=== PATIENT | male | born 1985 | race Two or more races ===

== ENCOUNTER 2021-04-14 16:08 | Emergency (ER) | payer OTHER, SELFPAY ==
[2021-04-14 16:40] VITALS: BP 109/67; PULSE 70; RESP 20; TEMP 37.3; O2SAT 97; BMI 37.3
--- NOTE | 2021-04-14 17:35 | ECG_ITS ---
APPROVED REPORT Exam: Resting ECG HR:79 bpm ECG Measurements Heart Rate 79 AXES WV 156 P 55 QRSd 92 QRS 30 QT 364 T 8 QTc 417 Conclusion Normal sinus rhythm Minimal voltage criteria for LVH, may be normal variant Isolated q in iii Abnormal ECG Electronically signed by : Oniel Lee, 04/15/2021 07:11:23
--- NOTE | 2021-04-14 17:35 | XR_ITS ---
PROCEDURE INFORMATION: Exam: XR Chest Exam date and time: 04/14/2021 5:35 PM Age: 35 years old Clinical indication: Chest pressure and left-sided; Patient HX: Left sided chest pain TECHNIQUE: Imaging protocol: XR of the chest. Views: 1 view. COMPARISON: CR CXR1 CHEST-PORTABLE 04/12/2016 12:32 PM FINDINGS: Lungs: Unremarkable. No consolidation. Pleural spaces: Unremarkable. No pleural effusion. No pneumothorax. Heart/Mediastinum: Unremarkable. No cardiomegaly. Bones/joints: Unremarkable. IMPRESSION: No new cardiopulmonary findings.
--- NOTE | 2021-04-14 17:36 | [facility].EDGENADL ---
ED Disposition Clinical Impression: Atypical chest pain, Encounter for medical screening examination Disposition: Home, Self-Care Condition on Discharge: Good Instructions: DI for Atypical Chest Pain, DI for Chest Pain Additional Instructions: You have been evaluated for chest pain. No signs of high blood pressure or diabetes. Please follow-up with a primary care doctor within 24 to 48 hours. Cardiology when available. Return to the emergency department for any new or worsening symptoms, chest pain, shortness of breath, syncope, other concerns. Referrals: Provider,MD Carmen [Primary Care Provider] - Benji Michael MD [Staff Physician] - Time of Disposition: 19:49 - Critical Care Critical Care Time: No Attestation: On 04/14/21, the high probability of a clinically significant, sudden or life threatening deterioration of the following system(s) required my full and direct attention, intervention and personal management. The time I documented below is in addition to time spent performing reported procedures but includes the following listed in this critical care notation. Medical Decision Making - Medical Records Medical records reviewed: Yes: I reviewed the patient's medical records. - Fran Inquiry Pt receiving controlled substance: No Vital Signs: 04/14/21 16:40 04/14/21 18:13 04/14/21 18:30 Temperature 99.1 F Temperature Source Oral Pulse Rate 76 72 Pulse Rate [Right Brachial] 70 Respiratory Rate 20 Blood Pressure 109/65 L 103/57 L Blood Pressure [Right Arm] 109/67 L Blood Pressure Mean 79 Blood Pressure Mean [Right Arm] 81 Blood Pressure Source [Right Arm] Automatic Cuff Blood Pressure Position [Right Arm] Sitting 02 Sat by Pulse Oximetry 97 98 98 Oxygen Delivery Method Room Air 04/14/21 19:00 04/14/21 20:18 Temperature 98.4 F Temperature Source Oral Pulse Rate 67 69 Pulse Rate [Right Brachial] Respiratory Rate 18 Blood Pressure 115/75 114/72 Blood Pressure [Right Arm] Blood Pressure Mean Blood Pressure Mean [Right Arm] Blood Pressure Source [Right Arm] Blood Pressure Position [Right Arm] 02 Sat by Pulse Oximetry 98 Oxygen Delivery Method - Lab Data Lab Results 04/14/21 15:59: Urine Color Yellow, Urine Appearance Clear, Urine pH 7.0, Ur Specific [place] 1.020, Urine Protein Negative, Urine Glucose (UA) Negative, Urine Ketones Negative, Urine Blood Negative, Urine Nitrate Negative, Urine Bilirubin Negative, Urine Urobilinogen 2.0, Ur Leukocyte Esterase Negative, Urine WBC Occasional, Amorphous Sediment 2+, Urine Bacteria 1+ 04/14/21 16:40: WBC 10.4, RBC 4.99, Hgb 13.9 L, Hct 40.5 L, MCV 81.2, MCH 27.9, MCHC 34.3, RDW 14.4, Plt Count 163, MPV 11.4 H, Neut % (Auto) 59.4, Lymph % (Auto) 32.7, [place] % (Auto) 5.6, Eos % (Auto) 1.9, Baso % (Auto) 0.5, Neut # (Auto) 6.2, Lymph # (Auto) 3.4, [place] # (Auto) 0.6, Eos # (Auto) 0.2, Baso # (Auto) 0.1 04/14/21 16:40: Sodium 139, Potassium 3.8, Chloride 106, Carbon Dioxide 29, Anion Gap 7.8, BUN 13, Creatinine 0.80, Estimated Creat Clear 197, Estimated GFR 110, Est GFR ( Amer) 133, Glucose 88, Calcium 9.0, Total Bilirubin 0.6, AST 26, ALT 31, Alkaline Phosphatase 84, Troponin I < 0.01, Total Protein 7.5, Albumin 4.3, Globulin 3.2, Albumin/Globulin Ratio 1.3 04/14/21 16:40: Hemoglobin A1c 5.3 04/14/21 19:13: Troponin I < 0.01 Result diagrams: 04/14/21 16:40 04/14/21 16:40 Orders (Tests/Meds): ED MEDICATIONS Discontinued Medications Generic Name Dose Route Start Last Admin Trade Name Freq PRN Reason Stop Dose Admin Aspirin 324 mg 04/14/21 17:36 04/14/21 17:46 Aspirin 81mg Chewable Tablet PO 04/14/21 17:37 Not Given ONCE ONE Aspirin 325 mg 04/14/21 17:45 04/14/21 17:47 Aspirin 325mg Tablet PO 04/14/21 17:46 325 mg ONCE ONE Administration ORDERS Category Date Time Status EKG Request [ECG Request by /Jyoti] Stat Y 04/14/21 17:35 Ordered - ECG Data T
[2021-04-14 17:54] LABS: Basophils # 0.1 K/mm3 (0-0.2); Basophils % 0.5 % (0.1-2.0); Eosinophils # 0.2 K/mm3 (0.0-0.4); Eosinophils % 1.9 % (0.1-12.0); Hematocrit 40.5 % (42.0-52.0); Hemoglobin 13.9 g/dL (14.1-18.0); Lymphocytes # 3.4 K/mm3 (0.7-4.5); Lymphocytes % 32.7 % (10-50); Mean Corpuscular HGB Conc 34.3 g/dL (31.8-35.4); Mean Corpuscular Hemoglobin 27.9 pg (27.0-31.2); Mean Corpuscular Volume 81.2 fl (80-94); Mean Platelet Volume 11.4 fl (7.4-10.4); Monocytes # 0.6 K/mm3 (0.1-1.0); Monocytes % 5.6 % (1.7-9.3); Neutrophils # 6.2 K/mm3 (1.8-7.8); Neutrophils % 59.4 % (37.0-80.0); Platelet Count 163 K/mm3 (142-424); Red Blood Count 4.99 M/mm3 (4.60-6.20); Red Cell Distribution Width 14.4 % (11.5-17.5); White Blood Count 10.4 K/mm3 (4.8-10.8)
[2021-04-14 18:00] LABS: Alanine Aminotransferase 31 U/L (12-78); Albumin Level 4.3 g/dl (3.5-5.0); Albumin/Globulin Ratio 1.3 (1.1-1.8); Alkaline Phosphatase 84 U/L (38-126); Anion Gap 7.8 mEq/L (5-15); Aspartate Amino Transferase 26 U/L (17-59); Bilirubin,Total 0.6 mg/dl (0.2-1.3); Blood Urea Nitrogen 13 mg/dl (9-20); Carbon Dioxide 29 mmol/L (22.0-30.0); Chloride 106 mmol/L (98-107); Creatinine Clearance Estimated 197 mL/min (50-200); Estimated Glomerular Filt Rate 110 ml/min (>60); GFR (African American) 133 ML/MIN (>60); Globulin 3.2 g/dL (1.3-3.2); Glucose 88 mg/dl (74-100); Potassium 3.8 mmoL/L (3.5-5.1); Sodium 139 mmol/L (136-145); Total Protein,Serum 7.5 g/dl (6.3-8.2)
[2021-04-14 18:04] LABS: Appearance,Urine CLEAR (Clear); Bilirubin,Urine Negative (Negative); Blood, Urine Negative (Negative); Color,Urine YELLOW (Yellow); Glucose,Urine (UA) Negative (Negative); Ketones,Urine Negative (Negative); Leukocyte Esterase,Urine Negative (Negative); Microscopic, Urine URINE MICROSCOPIC (MICROSCOPIC); Nitrate,Urine Negative (Negative); Protein,Urine Negative (Negative)
[2021-04-14 18:07] LABS: Hemoglobin A1C 5.3 % (4.0-6.0)
[2021-04-14 18:11] LABS: Amorphous Sediment,Urine 2+ /lpf; Bacteria,Urine 1+ /lpf; WBC,Urine Occasional #/hpf (0-3)
[2021-04-14 18:13] VITALS: BP 109/65; PULSE 76; O2SAT 98
[2021-04-14 18:13] LABS: Troponin I < 0.01 ng/ml (0.00-0.034)
[2021-04-14 18:30] VITALS: BP 103/57; PULSE 72; O2SAT 98
[2021-04-14 19:00] VITALS: BP 115/75; PULSE 67; O2SAT 98
[2021-04-14 19:44] LABS: Troponin I < 0.01 ng/ml (0.00-0.034)
[2021-04-14 20:18] VITALS: BP 114/72; PULSE 69; RESP 18; TEMP 36.9; O2SAT 97
--- NOTE | 2021-04-14 20:31 | PC.NURSE ---
pt wants to be contact @ [phone]. Marco Antonio will answer the phone and does speak korean. 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
== END 2021-04-14 20:32 | disposition home or self-care (01) ==
PROVIDERS: Emergency Provider Emergency Medicine
DX: R07.89 Other chest pain (principal); E78.5 Hyperlipidemia, unspecified
CPT/HCPCS: 71045; 80053; 81001; 83036; 84484; 85025; 93005; 99283